=== PATIENT | male | born 2000 | race African-American/Black ===

== ENCOUNTER 2021-10-05 13:02 | Emergency (ER) | payer MEDICAID ==
[~2021-10-05] VITALS: Ht 177.8 cm; Wt 77.0 kg
[2021-10-05 13:26] VITALS: BP 133/92
[2021-10-05] MEDS ORDERED: CEFTRIAXONE SODIUM 500 MG/VIAL IM ONE (13:30)
[2021-10-05] MEDS ORDERED: LIDOCAINE HCL 1% 20ML VIAL (Pyxis) INJ INFIL ONE (13:30)
[2021-10-05] MEDS ORDERED: DOXY100C5 MT (13:36)
[2021-10-05] MEDS ORDERED: LIDOCAINE HCL 1% 10 MG/ML 10ML VIAL IJ NR (14:00)
== END 2021-10-05 14:58 | disposition home or self-care (01) ==
LOC: ER 13:02
DX: Z20.2 Contact with and (suspected) exposure to infections with a predominantly sexual mode of transmission (principal)
CPT/HCPCS: 96372; 99283; J0696; J3490